=== PATIENT | female | born 1985 | race Caucasian/White ===

== ENCOUNTER → 2025-07-07 07:24 | Outpatient (CLI) | payer OTHER, SELFPAY ==
--- NOTE | 2025-07-07 07:29 | DI.US.S_ITS ---
PROCEDURE: US ABDOMEN LIMITED
== END ==
PROVIDERS: PCP Student in an Organized Health Care Education/Training Program; Referring Provider Student in an Organized Health Care Education/Training Program; Visit Provider Student in an Organized Health Care Education/Training Program
DX: K42.9 Umbilical hernia without obstruction or gangrene (principal); K43.9 Ventral hernia without obstruction or gangrene
CPT/HCPCS: 76705

== ENCOUNTER → 2025-07-31 13:27 | Outpatient (CLI) | payer OTHER, SELFPAY ==
--- NOTE | 2025-07-31 13:28 | DI.MG.S_ITS ---
MM diagnostic mammo unilat RT: 07/31/2025. BI-RADS: 1 CLINICAL: 40-year old female for right diagnostic mammogram. Tyrer-Cuzick lifetime risk of 8.3%. No personal or first-degree family history of breast cancer. PRIOR EXAMS: Outside priors 06/14/2025, 06/08/2024. MAMMOGRAPHY TECHNIQUE: 2D and 3D (tomosynthesis) digital mammographic views obtained, with additional images as needed for full coverage. Current study was also evaluated with a Computer Aided Detection (CAD) system. DENSITY Right: B. There are scattered areas of fibroglandular density. MAMMOGRAPHY FINDINGS Right: MLO only, Lower, Middle depth: The asymmetry seen on recent screening mammogram did not persist with additional imaging and is consistent with superimposition of normal breast tissue. No suspicious mass, asymmetry, microcalcification, or other abnormality seen. IMPRESSION: Right * No evidence of malignancy. RECOMMENDATIONS Bilateral * Annual screening mammography. COMMENTS: Findings and recommendations were conveyed to the patient during today's evaluation. OVERALL ASSESSMENT CATEGORY BI-RADS-1: Negative. The [employer] recommends annual screening mammography beginning at age 40 for women with average risk of breast cancer. ELECTRONICALLY SIGNED: Valerie Hernandez M.D. on 07/31/2025 at 02:32:06 PM PT Interpreting Station ID: [id number]
== END ==
LOC: MAMMO 13:27
PROVIDERS: PCP Student in an Organized Health Care Education/Training Program; Referring Provider Student in an Organized Health Care Education/Training Program; Visit Provider Student in an Organized Health Care Education/Training Program
DX: R92.2 Inconclusive mammogram (principal); R92.321 Mammographic fibroglandular density, right breast
CPT/HCPCS: 77065; G0279

== ENCOUNTER → 2025-08-08 12:01 | Outpatient (CLI) | payer OTHER, SELFPAY ==
--- NOTE | 2025-08-08 15:01 | ST.SWALLOW ---
Visit Care Team Role Provider Type Mickie Mix MD Attending Provider Non-Staff Primary Care Provider Referring Provider Specialty: Family Practice Address: [address], [place], [address] Email: Modified Barium Swallow Study MATE FOURTH Modified Barium Swallow Study Start: 08/08/25 13:51 Freq: Status: Active Protocol: Document 08/08/25 13:55 LNK (Rec: 08/08/25 15:01 LNK Desktop) Modified Barium Swallow Study Total Time Visit Start Time 12:30 Visit Stop Time 13:15 Total Visit Minutes 45 Referral Referring Physician Mickie Camejo, M<Lee Reason for Referral dysphagia Setting Setting Outpatient Care Patient Information Identification Type Name,Date of Patient History Referral received. No PMH attached Pt was seen for a Modified Barium Swallow Study with concerns re: difficulty swallowing. Pt reported a knot in [my] throat when she swallows (points to sternal notch). She also described a pressure sensation in the area of her sternum, noting she can feel when the food is stuck. She reported difficulty with sticky foods such as peanut butter and breads. Pt reported her PMH as including GERD/IBS (?), anxiety and OCD. Pt has recently changed her diet to a clean diet and elimination of caffeine and spicy foods. She noted that the diet change has been effective in easing her symptoms. Subjective Pt was seated in the flouroscopy chair with directions Observations and procedures explained for her. Pt appeared to be anxious. This MATE FOUR[facility] described the procedure to her and what to expect. Pt indicated she understood and agreed to proceed. Patient Positioning Position View Lat-A/P Imaging Lateral View Textures Administered Trials Presented Thin Liquid via Spoon (IDDSI 0),Mildly Thick Liquid via Spoon (IDDSI 2),Extremely Thick Liquid via Spoon ( IDDSI 4),Regular (IDDSI 7) Barium Tablet Yes The IDDSI Framework Protocol: IDDSI.1 Oral Impairment Source: The Modified Barium Swallow Impairment Profile (MBSImP??) Lip Closure No labial escape Tongue Control Cohesive bolus between tongue to palatal seal During Bolus Hold Bolus Preparation/ Timely & efficient chewing & mashing Mastication Bolus Transport/ Brisk tongue motion Lingual Motion Oral Residue Complete oral clearance,Residue collection on oral structures Location Tongue Initiation of Bolus head at posterior angle of ramus (first hyoid Pharyngeal Swallow excursion) Additional Oral *OME and DKS were observed to be WNL. Impairment *Dentition natural and in good hygiene Observations *Mastication observed with rotary chew pattern. *Good bolus formation, control and AP transition. *Velopharyngeal closure was WNL. Oral phase of swallow WNL Pharyngeal Impairment Source: The Modified Barium Swallow Impairment Profile (MBSImP??) Soft Palate No bolus between soft palate & pharyngeal wall Elevation Laryngeal Elevation Comp.sup.move.thyroid cart.w/comp.approx.arytenoids to epiglot petiole Anterior Hyoid Complete anterior movement Excursion Epiglottic Movement Complete inversion Laryngeal Vestibular Complete; no air/contrast in laryngeal vestibule Closure Pharyngeal Stripping Present - complete Wave Pharyngoesophageal Complete distention & complete duration; no obstruction Segment Opening of flow Tongue Base No contrast between tongue base & posterior pharyngeal Retraction wall Pharyngeal Residue Trace residue within/on pharyngeal structures Location Tongue base Additional *Osteophytes observed at C4-C5,, C5-C6 and C6-C7. Pharyngeal These osteophytes altered the shape of the esophagus Impairment but did not impede bolus flow Observations *Hyoid/laryngeal elevation and epiglottic inversion were judged to be adequate. *Tongue base retraction strength was good *Pharyngeal stripping wave and cricopharyngeal opening appeared adequate and did not appear to impede bolus flow. *Post-swallow residue was minimal primarily at the base of tongue, posterior pharyngeal wall, valleculae and pyriform sinuses primarily with puree and regular texture. *No laryngeal penetration or aspiration was observed. *Pharyngeal phase WNL A/P View Textures Administered Trials Presented Thin Liquid via Cup (IDDSI 0),Regular (IDDSI 7) The IDDSI Framework Protocol: IDDSI.1 A/P View Observations Pharyngeal Complete Contraction Esophageal Clearance Esophageal retention w/regtrograde flow below Upright Position pharyngoesoph segment Vocal Fold Function Good Esophageal Function Slowed Clearing,Reverse Peristalsis,Stasis,Narrowing Additional A-P Thin barium, regular texture trial, and calibrated Observations barium tablet trial were observed *Upon changing to AP position, observed moderate amount of residue within the esophagus from mid chest to the stomach *Partial clearing of the esophageal residue after swallows of water Pt continued to report a globus sensation that slowly moved to the stomach *The barium tablet was observed to stop and was retained at the aortic arch. Pt reported globus. *A calibrated barium tablet was observed to stop mid chest and at LES; eventually moved and then entered the stomach following more swallows of water. *Retro-flow of contrast was observed to the clavicles Esophageal dysphagia. Referral to GI recommended Clinical Impressions Dysphagia Type Esophageal Findings Oral and pharyngeal swallow phases observed to be WNL Esophageal dysphagia observed. Recommend GI referral for further evaluation - encouraged pt to discuss the above results with her physician The results and recommendations of the MBSS were described to the pt while observing still pictures taken during the MBSS. Pt expressed appreciation and indicated she understood. All pt questions were addressed. A CD of the MBSS was provided to the pt to review with her PCP/GI Patient Appropriate No for Therapy Recommendations Diet Comments No diet change recommended Aspiration Precautions Recommended Alternate Liquids/Solids,Frequent Rest Periods Precautions Treatment Plan Recommended GI Consult Referrals
== END ==
PROVIDERS: PCP Student in an Organized Health Care Education/Training Program; Referring Provider Student in an Organized Health Care Education/Training Program; Visit Provider Student in an Organized Health Care Education/Training Program
DX: R13.13 Dysphagia, pharyngeal phase (principal)
CPT/HCPCS: 74230; 92611